=== PATIENT | male | born 1950 | race Caucasian/White ===

== ENCOUNTER 2017-12-16 17:17 | Emergency (ER) | payer MEDICARE, MEDICAID, SELFPAY ==
[2017-12-16 17:18] VITALS: BP 117/66; PULSE 96; RESP 20; TEMP 36.6; O2SAT 97; BMI 19.9
--- NOTE | 2017-12-16 17:35 | PC.NURSE ---
Pt seen by ER MD Andersen, advised of pt complaint and stated to check pt glucose and no further orders or test were needed at this time and pt was ok to be DC
--- NOTE | 2017-12-16 17:36 | PC.NURSE ---
PT glucose was 167
--- NOTE | 2017-12-16 17:52 | HMH.EDFALL ---
ED Disposition Clinical Impression: Fall Qualifiers: Encounter type: initial encounter Qualified Code(s): W19.XXXA - Unspecified fall, initial encounter Contusion Qualifiers: Encounter type: initial encounter Contusion area: head Contusion of head detail: unspecified part of head Qualified Code(s): S00.93XA - Contusion of unspecified part of head, initial encounter Disposition: Home, Self-Care Condition on Discharge: Good Instructions: How to Prevent Falls, DI for Contusion Time of Disposition: 17:52 - Critical Care Critical Care Time: No Attestation: On , the high probability of a clinically significant, sudden or life threatening deterioration of the following system(s) required my full and direct attention, intervention and personal management. The time I documented below is in addition to time spent performing reported procedures but includes the following listed in this critical care notation. Medical Decision Making - Medical Records Medical records reviewed: Yes: I reviewed the patient's medical records. - [place] Inquiry Pt receiving controlled substance: No Vital Signs: 12/16/17 17:18 Temperature 97.8 F Temperature Source Oral Pulse Rate [Left Radial] 96 H Respiratory Rate 20 Blood Pressure [Right Arm] 117/66 Blood Pressure Mean [Right Arm] 83 Blood Pressure Position [Right Arm] Sitting 02 Sat by Pulse Oximetry 97 Orders (Tests/Meds): ORDERS Category Date Time Status CT cervical spine wo con Stat Cat Scan 12/16/17 17:[address] head/brain wo con Stat Cat Scan 12/16/17 17:28 Stop Req Pelvis XR 1-2 views [XR pelvis 1-2V] Stat Exams 12/16/17 17:26 Stop Req XR chest 2V Stat Exams 12/16/17 17:25 Stop Req - Reevaluation(s) Time: 17:55 Reevaluation #1: On reevaluation patient appears medically stable, no acute distress, fingerstick rechecked, 168. Patient has any loss of consciousness, denies any acute complaints. Fall HPI - General Chief Complaint: Weakness Stated Complaint: FAll Time Seen by Provider: 12/16/17 17:35 Mode of Arrival: Ambulatory Limitations: No Limitations Description of Symptoms (Recalled from ER Triage Doc. by RN): Fell at his home [place] and hit his head, denies any LOC, no injury noted to head, pt states he is weak. PT is A&O x4 - Related Data Allergies Allergy/AdvReac Type Severity Reaction Status Date / Time No Known Allergies Allergy Verified 12/16/17 17:18 [facility] History I have reviewed the patient's past medical history: Yes Medical History: Reports:: Diabetes Mellitus Type 2 Denies:: Diabetes Mellitus Type 1 - Social History Smoking Status: Current every day smoker Tobacco Type: cigarettes # Packs/Day (cigarettes): 1 Alcohol Intake: never - Psychiatric History Expresses thoughts of harming self/others: None Suicide Plan Description: No Plan ROS Obtained: Yes All systems reviewed & no additional complaints, Yes Systems reviewed as appropriate & no additional complaints - Allergic/Immunologic Comments: s/p fall Physical Exam - General General appearance: alert, in no apparent distress - Head Head exam: atraumatic, normocephalic, normal inspection - Eye Eye exam: Present: normal appearance, PERRL, EOMI - Neck Neck exam: Present: normal inspection, full ROM, trachea midline. Absent: meningismus, lymphadenopathy - Chest Chest inspection: Present: normal inspection, symmetric chest wall rise. Absent: tenderness - Respiratory Respiratory exam: Present: normal lung sounds bilaterally. Absent: respiratory distress - Cardiovascular Cardiovascular exam: Present: regular rate, normal rhythm. Absent: JVD - Abdominal Exam Abdominal exam: Present: soft, normal bowel sounds. Absent: distention, tenderness, guarding - Extremities Exam Extremities exam: Present: normal inspection, full ROM, normal capillary refill. Absent: calf tenderness - Back Exam Back exam: Present: normal inspection. Absent: tender
--- NOTE | 2017-12-16 17:55 | ED_ITS ---
ED Disposition Clinical Impression: Fall Qualifiers: Encounter type: initial encounter Qualified Code(s): W19.XXXA - Unspecified fall, initial encounter Contusion Qualifiers: Encounter type: initial encounter Contusion area: head Contusion of head detail : unspecified part of head Qualified Code(s): S00.93XA - Contusion of unspecified part of head, initial encounter Disposition: Home, Self-Care Condition on Discharge: Good Instructions: How to Prevent Falls, DI for Contusion Time of Disposition: 17:52 - Critical Care Critical Care Time: No Attestation: On , the high probability of a clinically significant, sudden or life threatening deterioration of the following system(s) required my full and direct attention, intervention and personal management. The time I documented below is in addition to time spent performing reported procedures but includes the following listed in this critical care notation. Medical Decision Making - Medical Records Medical records reviewed: Yes: I reviewed the patient's medical records. - [place] Inquiry Pt receiving controlled substance: No Vital Signs: 12/16/17 17:18 Temperature 97.8 F Temperature Source Oral Pulse Rate [Left Radial] 96 H Respiratory Rate 20 Blood Pressure [Right Arm] 117/66 Blood Pressure Mean [Right Arm] 83 Blood Pressure Position [Right Arm] Sitting 02 Sat by Pulse Oximetry 97 Orders (Tests/Meds): ORDERS Category Date Time Status CT cervical spine wo con Stat Cat Scan 12/16/17 17:[address] head/brain wo con Stat Cat Scan 12/16/17 17:28 Stop Req Pelvis XR 1-2 views [XR pelvis 1-2V] Stat Exams 12/16/17 17:26 Stop Req XR chest 2V Stat Exams 12/16/17 17:25 Stop Req - Reevaluation(s) Time: 17:55 Reevaluation #1: On reevaluation patient appears medically stable, no acute distress, fingerstick rechecked, 168. Patient has any loss of consciousness, denies any acute complaints. Fall HPI - General Chief Complaint: Weakness Stated Complaint: FAll Time Seen by Provider: 12/16/17 17:35 Mode of Arrival: Ambulatory Limitations: No Limitations Description of Symptoms (Recalled from ER Triage Doc. by RN): Fell at his home [place] and hit his head, denies any LOC, no injury noted to head, pt states he is weak. PT is A&O x4 - Related Data Allergies Allergy/AdvReac Type Severity Reaction Status Date / Time No Known Allergies Allergy Verified 12/16/17 17:18 [facility] History I have reviewed the patient's past medical history: Yes Medical History: Reports:: Diabetes Mellitus Type 2 Denies:: Diabetes Mellitus Type 1 - Social History Smoking Status: Current every day smoker Tobacco Type: cigarettes # Packs/Day (cigarettes): 1 Alcohol Intake: never - Psychiatric History Expresses thoughts of harming self/others: None Suicide Plan Description: No Plan ROS Obtained: Yes All systems reviewed & no additional complaints, Yes Systems reviewed as appropriate & no additional complaints - Allergic/Immunologic Comments: s/p fall Physical Exam - General General appearance: alert, in no apparent distress - Head Head exam: atraumatic, normocephalic, normal inspection - Eye Eye exam: Present: normal appearance, PERRL, EOMI - Neck Neck exam: Present: normal inspection, full ROM, trachea midli
[2017-12-16 18:02] VITALS: BP 123/70; PULSE 95; RESP 20; TEMP 36.6
== END 2017-12-16 18:29 | disposition home or self-care (01) ==
PROVIDERS: Emergency Provider Emergency Medicine; PCP Emergency Medicine
DX: S00.93XA Contusion of unspecified part of head, initial encounter (principal); E11.9 Type 2 diabetes mellitus without complications; F17.210 Nicotine dependence, cigarettes, uncomplicated; W01.0XXA Fall on same level from slipping, tripping and stumbling without subsequent striking against object, initial encounter; Y92.199 Unspecified place in other specified residential institution as the place of occurrence of the external cause
CPT/HCPCS: 99281

== ENCOUNTER → 2018-01-13 13:45 | Outpatient (CLI) | payer MEDICARE, MEDICAID, SELFPAY ==
--- NOTE | 2018-01-13 13:50 | CT_ITS ---
CT chest wo con HISTORY: Cough with shortness of air ITS.REASON: abnormal CXR ORDERING PHYSICIAN: Telly Treviño MD PATIENT AGE: 67 years Technique: Axial images obtained. Sagittal and coronal reformatted images are also generated and reviewed. All CT scans at the facility use one or more dose reduction, viz: automated exposure control; ma/kV adjustment per patient size (including targeted exams where dose is matched to indication; i.e. head); or iterative reconstruction technique. CONTRAST: None No previous studies available for comparison FINDINGS: There are atherosclerotic changes of the rest aorta. Small precarinal lymph nodes are present. A cluster of nodes in the precarinal area measures 2.4 x 1.5 cm. There is extensive coronary artery calcification. Heart size is normal. Mediastinal and hilar evaluation is limited without contrast. There is increased density in the right hilar region. This area measures 3 x 3 cm with occlusion of the right upper lobe bronchus. Postobstructive pneumonia is present in the right upper lobe within the posterior and apical segment. 4 mm nodules present in the extreme right lung base centrally with central lucency. There are moderate to severe centrilobular emphysematous changes greater in the upper lobes. No effusions are evident. Upper abdominal images are unremarkable with the exception of possible gallstone. There is severe cachexia. No bony destructive process evident there is an old left fifth rib fracture laterally. IMPRESSION: 1. Right hilar mass measuring 3 x 3 cm occluding the right upper lobe bronchus highly suspicious for bronchogenic carcinoma with postobstructive pneumonia in the right upper lobe with mild mediastinal adenopathy. No contralateral adenopathy. 2. Centrilobular emphysema 3. Coronary artery disease
== END ==
PROVIDERS: PCP Emergency Medicine; Visit Provider Emergency Medicine
DX: R93.8 Abnormal findings on diagnostic imaging of other specified body structures (principal)
CPT/HCPCS: 71250

== ENCOUNTER 2018-02-03 21:28 | Inpatient (IN) ==
--- NOTE | 2018-02-03 22:13 | Emergency Department Note ---
ED Disposition Clinical Impression: Community acquired pneumonia Qualifiers: Laterality: right Lung location: upper lobe of lung Qualified Code(s): J18.1 - Lobar pneumonia, unspecified organism Lung cancer Qualifiers: Laterality: right Lung location: upper lobe of lung Qualified Code(s): C34.11 - Malignant neoplasm of upper lobe, right bronchus or lung Disposition: Admitted as Observation Condition on Discharge: Good Referrals: Telly Treviño MD [Primary Care Provider] - - Critical Care Critical Care Time: No Attestation: On 02/03/18, the high probability of a clinically significant, sudden or life threatening deterioration of the following system(s) required my full and direct attention, intervention and personal management. The time I documented below is in addition to time spent performing reported procedures but includes the following listed in this critical care notation. Medical Decision Making - Medical Records Medical records reviewed: Yes: I reviewed the patient's medical records. - [place] Inquiry Pt receiving controlled substance: No Vital Signs: 02/03/18 21:29 Temperature 101.6 F H Temperature Source Oral Pulse Rate [Right Radial] 110 H Respiratory Rate 20 Blood Pressure [Right Arm] 142/64 Blood Pressure Mean [Right Arm] 90 02 Sat by Pulse Oximetry 89 L Oxygen Delivery Method Room Air - Lab Data Lab results reviewed: Yes: I reviewed the patient's lab results. Lab Results 02/03/18 21:45: WBC 16.7 H, RBC 3.58 L, Hgb 10.5 L, Hct 31.6 L, MCV 88.2, MCH 29.3, MCHC 33.2, RDW 13.4, Plt Count 468 H, MPV 7.6, Neut % (Auto) 82.1 H, Lymph % (Auto) 8.3 L, [place] % (Auto) 9.1, Eos % (Auto) 0.2, Baso % (Auto) 0.2, Neut # (Auto) 13.7 H, Lymph # (Auto) 1.4, [place] # (Auto) 1.5 H, Eos # (Auto) 0.0 , Baso # (Auto) 0.0 02/03/18 21:45: Sodium 134 L, Potassium 4.1, Chloride 100, Carbon Dioxide 27, Anion Gap 11.1, BUN 21 H, Creatinine 0.79, Estimated Creat Clear 64, Estimated GFR 97, Est GFR ( Amer) 118, Glucose 319 H, Calcium 8.4 L, Total Bilirubin 0.4, AST 8 L, ALT 3 L, Alkaline Phosphatase 75, Total Protein 6.6, Albumin 2.0 L, Globulin 4.6 H, Albumin/Globulin Ratio 0.4 L, Total Valproic Acid 22.2 L 02/03/18 21:45: Lactic Acid 1.5 Result diagrams: 02/03/18 21:45 02/03/18 21:45 Orders (Tests/Meds): ED MEDICATIONS Discontinued Medications Generic Name Dose Route Start Last Admin Trade Name Freq PRN Reason Stop Dose Admin Acetaminophen 1,000 mg 02/03/18 21:40 02/03/18 21:47 Tylenol 500mg Tablet PO 02/03/18 21:41 1,000 mg ONCE ONE Administration Sodium Chloride 1,000 mls @ 999 mls/hr 02/03/18 21:45 02/03/18 21:47 Sod Chlor 0.9% 1000ml Bag IV 02/03/18 22:45 999 mls/hr .Q1H1M RODDY Administration ORDERS Category Date Time Status XR chest portable Stat Exams 02/03/18 21:39 Taken Complete Blood Count Auto Diff Stat Lab 02/03/18 21:45 Results Urinalysis and Microscopic Stat Lab 02/03/18 21:39 Ordered Blood Culture Stat Micro 02/03/18 21:45 Received - Radiology Data #1 Image(s): Chest Image Reviewed: Yes I reviewed the patient's radiology image Preliminary Findings: Abnormal (rt fullness) Weakness HPI - General Chief complaint: Fever Stated complaint: ALTERED MENTAL STATUS Time Seen by Provider: 02/03/18 22:10 Mode of Arrival: EMS Limitations: Physical Limitations Description of Symptoms (Recalled from ER Triage Doc. by RN): PT WITH HX LUNG CANCER, PT IS UNAWARE, DETENTION REPORTS HYPERGLYCEMIA. PT IS FEBRILE, HAS C /O COUGH AND OVERALL NOT FEELING WELL. - History of Present Illness HPI Narrative: fever with weakness and dec po intake sent fron assisted - pt unable to ambulate and rug scratcher cough and has lung cancer MD Complaint: generalized weakness Onset (ago): day(s) Duration: constant Location: generalized Migration: none Severity: moderate Context: recent illness Associated symptoms: fever/chills, shortness of breath - Related Data Home Medications Medication Instructions Recorded Confirmed Carbidopa-Levo 25-100 mg Odt 1 tab PO BID 02/03/18 02/03/18 Divalproex Sodium [Depakote 125 mg PO BID 02/03/18 02/03/18 Sprinkle 125mg capsule] Docusate Sodium [Colace 250mg 250 mg PO DAILY 02/03/18 02/03/18 capsule] Insulin Lispro [Humalog Kwikpen 10 unit SQ BID 02/03/18 02/03/18 U-100] OLANZapine [Zyprexa] 7.5 mg PO DAILY 02/03/18 02/03/18 Omeprazole [Omeprazole 20mg Tab] 20 mg PO DAILY 02/03/18 02/03/18 Potassium Chloride [Klor-con 20 20 meq PO DAILY 02/03/18 02/03/18 mEq tablet] Tamsulosin HCl [Flomax 0.4mg 0.4 mg PO HS 02/03/18 02/03/18 capsule] hydroCHLOROthiazide [HCTZ 25mg 25 mg PO DAILY 02/03/18 02/03/18 tab] Allergies Allergy/AdvReac Type Severity Reaction Status Date / Time No Known Allergies Allergy Verified 12/16/17 17:18 [facility] History I have reviewed the patient's past medical history: Yes Medical History: Reports:: Diabetes Mellitus Type 2 Denies:: Diabetes Mellitus Type 1 - Social History Smoking Status: Current every day smoker Tobacco Type: cigarettes # Packs/Day (cigarettes): 1 Alcohol Intake: never - Psychiatric History Expresses thoughts of harming self/others: None Suicide Plan Description: No Plan ROS Obtained: Yes All systems reviewed & no additional complaints - Constitutional Constitutional: Reports fever(s), Reports weakness - Eyes Eyes: Denies change in vision - ENT Ears, Nose, Mouth, and Throat: Denies sore throat - Cardiovascular Cardiovascular: Denies chest pain, Denies dyspnea - Respiratory Respiratory: Yes cough, Yes dyspnea, No coughing up blood - Gastrointestinal Gastrointestingal: Denies: abdominal pain - Musculoskeletal Musculoskeletal: Denies joint pain - Integumentary/Breasts Skin/Breast: Denies rash - Neurologic Neurologic: Denies headache(s) Physical Exam - General General appearance: alert, cachectic - Head Head exam: normocephalic - Eye Eye exam: Present: PERRL, EOMI. Absent: scleral icterus - ENT ENT exam: Present: mucous membranes dry - Neck Neck exam: Present: trachea midline - Respiratory Respiratory exam: Present: other (dec bs on rt). Absent: respiratory distress - Cardiovascular Cardiovascular exam: Present: regular rate, systolic murmur, +S4 - Abdominal Exam Abdominal exam: Present: soft - Extremities Exam Extremities exam: Absent: calf tenderness - Neurological Exam Neurological exam: Present: alert, oriented X3, CN II-XII intact - Psychiatric Psychiatric exam: Present: normal affect - Skin Skin exam: Absent: rash
[2018-02-03 22:22] LABS: Basophils % 0.2 % (0.1-2.0); Eosinophils % 0.2 % (0.1-12.0); Hematocrit 31.6 % (42.0-52.0); Hemoglobin 10.5 g/dL (14.1-18.0); Lymphocytes # 1.4 K/mm3 (0.7-4.5); Lymphocytes % 8.3 K/mm3 (10-50); Mean Corpuscular HGB Conc 33.2 g/dL (31.8-35.4); Mean Corpuscular Hemoglobin 29.3 pg (27.0-31.2); Mean Corpuscular Volume 88.2 fl (80-94); Mean Platelet Volume 7.6 fl (7.4-10.4); Monocytes # 1.5 K/mm3 (0.1-1.0); Monocytes % 9.1 % (1.7-9.3); Neutrophils # 13.7 K/mm3 (1.8-7.8); Neutrophils % 82.1 % (37.0-80.0); Platelet Count 468 K/mm3 (142-424); Red Blood Count 3.58 M/mm3 (4.60-6.20); Red Cell Distribution Width 13.4 % (11.5-17.5); White Blood Count 16.7 K/mm3 (4.8-10.8)
[2018-02-03 22:32] LABS: Albumin/Globulin Ratio 0.4 (1.1-1.8); Anion Gap 11.1 mEq/L (5-15); Bilirubin,Total 0.4 mg/dL (0.2-1.0); Calcium 8.4 mg/dL (8.5-10.1); Globulin 4.6 gm/dl (1.3-3.2); Potassium 4.1 mmoL/L (3.5-5.1); Total Protein,Serum 6.6 gm/dL (6.4-8.2); Valproic Acid, (Depakene) 22.2 ug/mL (50-100)
[2018-02-03 23:33] LABS: Anisocytosis 1+; Lymphocytes % 6 % (10-50); Monocytes % 2 % (2-9); Neutrophils % 92 % (42-76); Total Cells Counted 100
[2018-02-03 23:34] LABS: Hypochromasia 1+
[2018-02-04 07:26] LABS: Basophils % 0.3 % (0.1-2.0); Eosinophils % 0.1 % (0.1-12.0); Hematocrit 31.7 % (42.0-52.0); Hemoglobin 10.7 g/dL (14.1-18.0); Lymphocytes # 1.9 K/mm3 (0.7-4.5); Lymphocytes % 11.5 K/mm3 (10-50); Mean Corpuscular HGB Conc 33.7 g/dL (31.8-35.4); Mean Corpuscular Hemoglobin 29.8 pg (27.0-31.2); Mean Corpuscular Volume 88.6 fl (80-94); Mean Platelet Volume 7.8 fl (7.4-10.4); Monocytes # 0.9 K/mm3 (0.1-1.0); Monocytes % 5.5 % (1.7-9.3); Neutrophils # 13.9 K/mm3 (1.8-7.8); Neutrophils % 82.6 % (37.0-80.0); Platelet Count 457 K/mm3 (142-424); Red Blood Count 3.58 M/mm3 (4.60-6.20); Red Cell Distribution Width 13.5 % (11.5-17.5); White Blood Count 16.8 K/mm3 (4.8-10.8)
[2018-02-04 07:31] LABS: Anion Gap 11.9 mEq/L (5-15); Potassium 3.9 mmoL/L (3.5-5.1)
--- NOTE | 2018-02-04 07:33 | Pharmacy Consult Notes ---
[facility] Pharmacy VTE Monitoring - Patient Demographics Admission date: 02/04/18 Report Date: 02/04/18 Time: 07:32 Allergies/Adverse Reactions: Patient Allergies No Known Allergies Allergy (Verified 12/16/17 17:18) Height: 1.7 m Weight: 62.199 kg Patient Problems: Current Active Problems Community acquired pneumonia (Acute) Lung cancer (Acute) - VTE Risk Labs: VTE Related Lab Results Hgb 10.5 g/dL (14.1-18.0) L 02/03/18 21:45 Hct 31.6 % (42.0-52.0) L 02/03/18 21:45 Plt Count 468 K/mm3 (142-424) H 02/03/18 21:45 BUN 21 mg/dL (7-18) H 02/03/18 21:45 Creatinine 0.79 mg/dL (0.70-1.30) 02/03/18 21:45 Estimated Creat Clear 64 mL/min (0-300) 02/03/18 21:45 Was VTE Risk Assessment Performed: Yes VTE Score: 6 VTE Risk Level: Moderate Risk - Prophylaxis VTE Prophylaxis Ordered?: Yes Types of VTE Prophylaxis: Pharmacological Pharmacologic Type: Enoxaparin - VTE Diagnosis Confirmed Treatment or plan recommended: Continue Current Treatment
--- NOTE | 2018-02-04 07:48 | Pharmacy Consult Notes ---
- Pharmacy Consult Date: 02/04/18 Time: 07:46 Referring provider: DR. MCNALLY Reason for Consult:: VANCOMYCIN DOSING Allergies and ADEs:: Allergies Allergy/AdvReac Type Severity Reaction Status Date / Time No Known Allergies Allergy Verified 12/16/17 17:18 Home Medications:: Home Medications Medication Instructions Recorded Confirmed Type Divalproex Sodium [Depakote 250 mg PO BID 02/03/18 02/04/18 History Sprinkle 125mg capsule] Docusate Sodium [Colace 250mg 250 mg PO DAILY 02/03/18 02/04/18 History capsule] Insulin Lispro [Humalog Kwikpen 10 unit SQ BID 02/03/18 02/04/18 History U-100] OLANZapine [Zyprexa] 7.5 mg PO DAILY 02/03/18 02/04/18 History Omeprazole [Omeprazole 20mg Tab] 20 mg PO DAILY 02/03/18 02/04/18 History Potassium Chloride [Klor-con 20 20 meq PO DAILY 02/03/18 02/04/18 History mEq tablet] Tamsulosin HCl [Flomax 0.4mg 0.4 mg PO DAILY 02/03/18 02/04/18 History capsule] hydroCHLOROthiazide [HCTZ 25mg 25 mg PO DAILY 02/03/18 02/04/18 History tab] Carbidopa/Levodopa [Carbidopa-Levo 1 each PO BID 02/04/18 02/04/18 History 25-100 mg Odt] Height: 1.7 m Weight: 62.199 kg Laboratory Results:: Laboratory Results - last 24 hr 02/03/18 21:34: POC Glucose 360 H* 02/03/18 21:45: WBC 16.7 H, RBC 3.58 L, Hgb 10.5 L, Hct 31.6 L, MCV 88.2, MCH 29.3, MCHC 33.2, RDW 13.4, Plt Count 468 H, MPV 7.6, Neut % (Auto) 82.1 H, Lymph % (Auto) 8.3 L, [place] % (Auto) 9.1, Eos % (Auto) 0.2, Baso % (Auto) 0.2, Neut # (Auto) 13.7 H, Lymph # (Auto) 1.4, [place] # (Auto) 1.5 H, Eos # (Auto) 0.0 , Baso # (Auto) 0.0, Total Counted 100, Neutrophils % (Manual) 92 H, Lymphocytes % (Manual) 6 L, Monocytes % (Manual) 2, Platelet Estimate Normal, Hypochromasia 1+, Anisocytosis 1+ 02/03/18 21:45: Sodium 134 L, Potassium 4.1, Chloride 100, Carbon Dioxide 27, Anion Gap 11.1, BUN 21 H, Creatinine 0.79, Estimated Creat Clear 64, Estimated GFR 97, Est GFR ( Amer) 118, Glucose 319 H, Calcium 8.4 L, Total Bilirubin 0.4, AST 8 L, ALT 3 L, Alkaline Phosphatase 75, Total Protein 6.6, Albumin 2.0 L, Globulin 4.6 H, Albumin/Globulin Ratio 0.4 L, Total Valproic Acid 22.2 L 02/03/18 21:45: Lactic Acid 1.5 02/04/18 06:21: POC Glucose 264 H 02/04/18 06:50: WBC 16.8 H, RBC 3.58 L, Hgb 10.7 L, Hct 31.7 L, MCV 88.6, MCH 29.8, MCHC 33.7, RDW 13.5, Plt Count 457 H, MPV 7.8, Neut % (Auto) 82.6 H, Lymph % (Auto) 11.5, [place] % (Auto) 5.5, Eos % (Auto) 0.1, Baso % (Auto) 0.3, Neut # (Auto) 13.9 H, Lymph # (Auto) 1.9, [place] # (Auto) 0.9, Eos # (Auto) 0.0, Baso # (Auto) 0.0 02/04/18 06:50: Sodium 136, Potassium 3.9, Chloride 101, Carbon Dioxide 27, Anion Gap 11.9, BUN 17, Creatinine 0.69 L, Estimated Creat Clear 61, Estimated GFR 114, Est GFR ( Amer) 138, Glucose 252 H D, Magnesium 1.8 Medical History: Reports:: Diabetes Mellitus Type 2 Denies:: Diabetes Mellitus Type 1, Internal Pacemaker Assessment and Plan - Assessment and plan all Dx Assessment and Plan for all problems:: BASED ON PATIENT'S FACTORS, RECOMMEND STARTING WITH VANCOMYCIN 1250 MG Q18H AT THIS TIME. PHARMACY WILL FOLLOW DAILY AND ADJUST APPROPRIATE. ADRI OROSCO, PHARMD
--- NOTE | 2018-02-04 10:31 | History & Physical Report ---
*Admission Date: 02/04/18 *Chief complaint: cough *History of present illness: this wm from [facility] nad fever with cough- pt has long hx of tob use and has abn ct - with prob lung cancer- he has dec ambulation and dec po intake and was seen in the ed and admitted with prob (67-year-old man to the hospital on 02/03/2018 because of failure to thrive cough 100 pound weight loss. She lives in an assisted living center and the weight loss and loss of appetite started about a year ago. The cough started about 3 months ago. Cough is brassy nonproductive. It has over 100 pack years of smoking. CT scan on admission showed a right hilar mass with numerous mediastinal nodes.) [facility] History I have reviewed the patient's past medical history: Yes Medical History: Reports:: Diabetes Mellitus Type 2 Denies:: Diabetes Mellitus Type 1, Internal Pacemaker Other Surgeries: No: Pacemaker - *Social History Educational Level: Attended Grade School Smoking Status: Current every day smoker Tobacco Type: cigarettes # Packs/Day (cigarettes): 1 #Yrs smoked (if former smoker): 49 Alcohol Intake: never Occupational Status: disabled Housing: assisted living facility Household Members: other - Psychiatric History Expresses thoughts of harming self/others: None Suicide Plan Description: No Plan *Family Hx:: Unable to obtain Review of Systems - Review of Systems Review of systems:: pertinent systems reviewed and negative unless documented below - Constitutional Reports fever(s), Reports weakness, Reports weight loss - Eyes Denies change in vision - ENT Denies sore throat - *Cardiovascular Reports chest pain - *Respiratory Reports cough, Denies coughing up blood - *Gastrointestinal Denies vomiting - *Genitourinary Denies blood in urine - *Musculoskeletal Denies joint pain, Denies joint swelling - Integumentary/Breasts Denies rash - *Neurologic Reports weakness, Denies headache(s) - Psychiatric Reports confusion Meds Home Medications Medication Instructions Recorded Confirmed Type Divalproex Sodium [Depakote 250 mg PO BID 02/03/18 02/04/18 History Sprinkle 125mg capsule] Docusate Sodium [Colace 250mg 250 mg PO DAILY 02/03/18 02/04/18 History capsule] Insulin Lispro [Humalog Kwikpen 10 unit SQ BID 02/03/18 02/04/18 History U-100] OLANZapine [Zyprexa] 7.5 mg PO HS 02/03/18 02/04/18 History Omeprazole [Omeprazole 20mg Tab] 20 mg PO DAILY 02/03/18 02/04/18 History Potassium Chloride [Klor-con 20 20 meq PO DAILY 02/03/18 02/04/18 History mEq tablet] Tamsulosin HCl [Flomax 0.4mg 0.4 mg PO DAILY 02/03/18 02/04/18 History capsule] hydroCHLOROthiazide [HCTZ 25mg 25 mg PO DAILY 02/03/18 02/04/18 History tab] Carbidopa/Levodopa [Carbidopa-Levo 1 tab PO BID 02/04/18 02/04/18 History 25-100 mg Odt] Allergies Allergy/AdvReac Type Severity Reaction Status Date / Time No Known Allergies Allergy Verified 12/16/17 17:18 Exam Vital signs and Labs for Last 24 Hours: Temp Pulse Resp BP Pulse Ox 98.7 F 77 22 136/59 93 L 02/04/18 07:41 02/04/18 07:41 02/04/18 07:41 02/04/18 07:41 02/04/18 07:41 Laboratory Results - last 24 hr 02/03/18 21:34: POC Glucose 360 H* 02/03/18 21:45: WBC 16.7 H, RBC 3.58 L, Hgb 10.5 L, Hct 31.6 L, MCV 88.2, MCH 29.3, MCHC 33.2, RDW 13.4, Plt Count 468 H, MPV 7.6, Neut % (Auto) 82.1 H, Lymph % (Auto) 8.3 L, [place] % (Auto) 9.1, Eos % (Auto) 0.2, Baso % (Auto) 0.2, Neut # (Auto) 13.7 H, Lymph # (Auto) 1.4, [place] # (Auto) 1.5 H, Eos # (Auto) 0.0 , Baso # (Auto) 0.0, Total Counted 100, Neutrophils % (Manual) 92 H, Lymphocytes % (Manual) 6 L, Monocytes % (Manual) 2, Platelet Estimate Normal, Hypochromasia 1+, Anisocytosis 1+ 02/03/18 21:45: Sodium 134 L, Potassium 4.1, Chloride 100, Carbon Dioxide 27, Anion Gap 11.1, BUN 21 H, Creatinine 0.79, Estimated Creat Clear 64, Estimated GFR 97, Est GFR ( Amer) 118, Glucose 319 H, Calcium 8.4 L, Total Bilirubin 0.4, AST 8 L, ALT 3 L, Alkaline Phosphatase 75, Total Protein 6.6, Albumin 2.0 L, Globulin 4.6 H, Albumin/Globulin Ratio 0.4 L, Total Valproic Acid 22.2 L 02/03/18 21:45: Lactic Acid 1.5 02/04/18 06:21: POC Glucose 264 H 02/04/18 06:50: WBC 16.8 H, RBC 3.58 L, Hgb 10.7 L, Hct 31.7 L, MCV 88.6, MCH 29.8, MCHC 33.7, RDW 13.5, Plt Count 457 H, MPV 7.8, Neut % (Auto) 82.6 H, Lymph % (Auto) 11.5, [place] % (Auto) 5.5, Eos % (Auto) 0.1, Baso % (Auto) 0.3, Neut # (Auto) 13.9 H, Lymph # (Auto) 1.9, [place] # (Auto) 0.9, Eos # (Auto) 0.0, Baso # (Auto) 0.0 02/04/18 06:50: Sodium 136, Potassium 3.9, Chloride 101, Carbon Dioxide 27, Anion Gap 11.9, BUN 17, Creatinine 0.69 L, Estimated Creat Clear 61, Estimated GFR 114, Est GFR ( Amer) 138, Glucose 252 H D, Magnesium 1.8 I & O for Last 24 hours: Intake & Output 02/01/18 02/02/18 02/03/18 02/04/18 11:59 11:59 11:59 11:59 Intake Total 1566 / 1566 Output Total 100 / 100 Balance 1466 / 1466 Weight 137 lb 2 oz Microbiology Reports for the Last 24 Hours: Microbiology 02/03/18 00:10 Sputum - Expectorated Sputum Gram Stain - Final 02/03/18 00:10 Sputum - Expectorated Sputum Sputum Culture - Preliminary - Constitutional no acute distress, cachectic - *Routine HEENT Exam Head: Present: normocephalic Eye: Present: EOMI, PERRL. Absent: conjunctival icterus ENT: Present: mucous membranes dry - *Routine Neck Exam Present: supple - *Routine Respiratory Exam Present: rhonchi - *Routine Cardiovascular Exam Present: RRR, murmur, S4 - *Routine Abdominal Exam Present: soft. Absent: tenderness - *Routine Skin Exam Absent: rash - *Routine Neurological Exam Present: alert, CN II-XII intact - Routine Psychiatric Exam Present: unable to assess H&P: Result - Labs Labs: Short CBC 02/03/18 02/04/18 Range/Units 21:45 06:50 WBC 16.7 H 16.8 H (4.8-10.8) K/mm3 Hgb 10.5 L 10.7 L (14.1-18.0) g/dL Hct 31.6 L 31.7 L (42.0-52.0) % Plt Count 468 H 457 H (142-424) K/mm3 BMP 02/03/18 02/04/18 21:45 06:50 Sodium 134 L 136 Potassium 4.1 3.9 Chloride 100 101 Carbon Dioxide 27 27 BUN 21 H 17 Creatinine 0.79 0.69 L Glucose 319 H 252 H D Calcium 8.4 L Liver Function 02/03/18 Range/Units 21:45 Total Bilirubin 0.4 (0.2-1.0) mg/dL AST 8 L (15-37) U/L ALT 3 L (12-78) U/L Alkaline Phosphatase 75 (46-116) U/L Albumin 2.0 L (3.4-5.0) gm/dL Assessment and Plan (1) IDDM (insulin dependent diabetes mellitus) Current visit: Yes Status: Acute Category: Medical Code(s): E11.9 - Type 2 diabetes mellitus without complications; Z79.4 - manager intermediate (current) use of insulin (2) Community acquired pneumonia Current visit: Yes Status: Acute Qualifiers: Laterality: right Lung location: upper lobe of lung Qualified Code(s): J18.1 - Lobar pneumonia, unspecified organism Category: Medical Code(s): J18.9 - Pneumonia, unspecified organism (3) Lung cancer Current visit: Yes Status: Acute Qualifiers: Laterality: right Lung location: upper lobe of lung Qualified Code(s): C34.11 - Malignant neoplasm of upper lobe, right bronchus or lung Category: Medical Code(s): C34.90 - Malignant neoplasm of unspecified part of unspecified bronchus or lung (4) Anemia Current visit: Yes Status: Acute Qualifiers: Anemia type: unspecified type Qualified Code(s): D64.9 - Anemia, unspecified Category: Medical Code(s): D64.9 - Anemia, unspecified
[2018-02-04 11:06] LABS: Lymphocytes % 11 % (10-50); Monocytes % 6 % (2-9); Neutrophils % 83 % (42-76); Total Cells Counted 100
--- NOTE | 2018-02-04 13:36 | Consult Report ---
*Admission Date: 02/04/18 *History of present illness: this wm from [facility] nad fever with cough [facility] History Medical History: Reports:: Diabetes Mellitus Type 2 Denies:: Diabetes Mellitus Type 1, Internal Pacemaker Other Surgeries: No: Pacemaker - *Social History Educational Level: Attended Grade School Smoking Status: Current every day smoker Tobacco Type: cigarettes # Packs/Day (cigarettes): 1 #Yrs smoked (if former smoker): 49 Alcohol Intake: never Occupational Status: disabled Housing: assisted living facility Household Members: other - Psychiatric History Expresses thoughts of harming self/others: None Suicide Plan Description: No Plan *Family Hx:: Unable to obtain Review of Systems - *Neurologic Reports weakness, Denies headache(s) Meds Home Medications Medication Instructions Recorded Confirmed Type Divalproex Sodium [Depakote 250 mg PO BID 02/03/18 02/04/18 History Sprinkle 125mg capsule] Docusate Sodium [Colace 250mg 250 mg PO DAILY 02/03/18 02/04/18 History capsule] Insulin Lispro [Humalog Kwikpen 10 unit SQ BID 02/03/18 02/04/18 History U-100] OLANZapine [Zyprexa] 7.5 mg PO HS 02/03/18 02/04/18 History Omeprazole [Omeprazole 20mg Tab] 20 mg PO DAILY 02/03/18 02/04/18 History Potassium Chloride [Klor-con 20 20 meq PO DAILY 02/03/18 02/04/18 History mEq tablet] Tamsulosin HCl [Flomax 0.4mg 0.4 mg PO DAILY 02/03/18 02/04/18 History capsule] hydroCHLOROthiazide [HCTZ 25mg 25 mg PO DAILY 02/03/18 02/04/18 History tab] Carbidopa/Levodopa [Carbidopa-Levo 1 tab PO BID 02/04/18 02/04/18 History 25-100 mg Odt] Allergies Allergy/AdvReac Type Severity Reaction Status Date / Time No Known Allergies Allergy Verified 12/16/17 17:18 Exam Vital signs and Labs for Last 24 Hours: Temp Pulse Resp BP Pulse Ox 98.5 F 78 20 133/56 96 02/04/18 11:27 02/04/18 11:27 02/04/18 11:27 02/04/18 11:27 02/04/18 11:27 Laboratory Results - last 24 hr 02/03/18 21:34: POC Glucose 360 H* 02/03/18 21:45: WBC 16.7 H, RBC 3.58 L, Hgb 10.5 L, Hct 31.6 L, MCV 88.2, MCH 29.3, MCHC 33.2, RDW 13.4, Plt Count 468 H, MPV 7.6, Neut % (Auto) 82.1 H, Lymph % (Auto) 8.3 L, [place] % (Auto) 9.1, Eos % (Auto) 0.2, Baso % (Auto) 0.2, Neut # (Auto) 13.7 H, Lymph # (Auto) 1.4, [place] # (Auto) 1.5 H, Eos # (Auto) 0.0 , Baso # (Auto) 0.0, Total Counted 100, Neutrophils % (Manual) 92 H, Lymphocytes % (Manual) 6 L, Monocytes % (Manual) 2, Platelet Estimate Normal, Hypochromasia 1+, Anisocytosis 1+ 02/03/18 21:45: Sodium 134 L, Potassium 4.1, Chloride 100, Carbon Dioxide 27, Anion Gap 11.1, BUN 21 H, Creatinine 0.79, Estimated Creat Clear 64, Estimated GFR 97, Est GFR ( Amer) 118, Glucose 319 H, Calcium 8.4 L, Total Bilirubin 0.4, AST 8 L, ALT 3 L, Alkaline Phosphatase 75, Total Protein 6.6, Albumin 2.0 L, Globulin 4.6 H, Albumin/Globulin Ratio 0.4 L, Total Valproic Acid 22.2 L 02/03/18 21:45: Lactic Acid 1.5 02/04/18 06:21: POC Glucose 264 H 02/04/18 06:50: WBC 16.8 H, RBC 3.58 L, Hgb 10.7 L, Hct 31.7 L, MCV 88.6, MCH 29.8, MCHC 33.7, RDW 13.5, Plt Count 457 H, MPV 7.8, Neut % (Auto) 82.6 H, Lymph % (Auto) 11.5, [place] % (Auto) 5.5, Eos % (Auto) 0.1, Baso % (Auto) 0.3, Neut # (Auto) 13.9 H, Lymph # (Auto) 1.9, [place] # (Auto) 0.9, Eos # (Auto) 0.0, Baso # (Auto) 0.0, Total Counted 100, Neutrophils % (Manual) 83 H, Lymphocytes % (Manual) 11, Monocytes % (Manual) 6, Platelet Estimate Slight increase 02/04/18 06:50: Sodium 136, Potassium 3.9, Chloride 101, Carbon Dioxide 27, Anion Gap 11.9, BUN 17, Creatinine 0.69 L, Estimated Creat Clear 61, Estimated GFR 114, Est GFR ( Amer) 138, Glucose 252 H D, Magnesium 1.8 02/04/18 11:31: POC Glucose 313 H* I & O for Last 24 hours: Intake & Output 02/01/18 02/02/18 02/03/18 02/04/18 23:59 23:59 23:59 23:59 Intake Total 1100 / 1100 946 / 946 Output Total 700 / 700 Balance 1100 / 1100 246 / 246 Weight 142 lb 137 lb 2 oz Microbiology Reports for the Last 24 Hours: Microbiology 02/03/18 00:10 Sputum - Expectorated Sputum Gram Stain - Final 02/03/18 00:10 Sputum - Expectorated Sputum Sputum Culture - Preliminary Internal Medicine - CN: Reslt - Labs CBC & Chem 7: 02/04/18 06:50 02/04/18 06:50 Labs: Short CBC 02/03/18 02/04/18 Range/Units 21:45 06:50 WBC 16.7 H 16.8 H (4.8-10.8) K/mm3 Hgb 10.5 L 10.7 L (14.1-18.0) g/dL Hct 31.6 L 31.7 L (42.0-52.0) % Plt Count 468 H 457 H (142-424) K/mm3 BMP 02/03/18 02/04/18 21:45 06:50 Sodium 134 L 136 Potassium 4.1 3.9 Chloride 100 101 Carbon Dioxide 27 27 BUN 21 H 17 Creatinine 0.79 0.69 L Glucose 319 H 252 H D Calcium 8.4 L Liver Function 02/03/18 Range/Units 21:45 Total Bilirubin 0.4 (0.2-1.0) mg/dL AST 8 L (15-37) U/L ALT 3 L (12-78) U/L Alkaline Phosphatase 75 (46-116) U/L Albumin 2.0 L (3.4-5.0) gm/dL
--- NOTE | 2018-02-04 13:44 | Consult Report ---
*Admission Date: 02/04/18 (67-year-old man to the hospital on 02/03/2018 because of failure to thrive cough 100 pound weight loss. She lives in an assisted living center and the weight loss and loss of appetite started about a year ago. The cough started about 3 months ago. Cough is brassy nonproductive. It has over 100 pack years of smoking. CT scan on admission showed a right hilar mass with numerous mediastinal nodes.) [facility] History Medical History: Reports:: Diabetes Mellitus Type 2 Denies:: Diabetes Mellitus Type 1, Internal Pacemaker Other Surgeries: No: Pacemaker - *Social History Educational Level: Attended Grade School Smoking Status: Current every day smoker Tobacco Type: cigarettes # Packs/Day (cigarettes): 1 #Yrs smoked (if former smoker): 49 Alcohol Intake: never Occupational Status: disabled Housing: assisted living facility Household Members: other - Psychiatric History Expresses thoughts of harming self/others: None Suicide Plan Description: No Plan *Family Hx:: Unable to obtain Review of Systems - *Neurologic Reports weakness, Denies headache(s) Meds Home Medications Medication Instructions Recorded Confirmed Type Divalproex Sodium [Depakote 250 mg PO BID 02/03/18 02/04/18 History Sprinkle 125mg capsule] Docusate Sodium [Colace 250mg 250 mg PO DAILY 02/03/18 02/04/18 History capsule] Insulin Lispro [Humalog Kwikpen 10 unit SQ BID 02/03/18 02/04/18 History U-100] OLANZapine [Zyprexa] 7.5 mg PO HS 02/03/18 02/04/18 History Omeprazole [Omeprazole 20mg Tab] 20 mg PO DAILY 02/03/18 02/04/18 History Potassium Chloride [Klor-con 20 20 meq PO DAILY 02/03/18 02/04/18 History mEq tablet] Tamsulosin HCl [Flomax 0.4mg 0.4 mg PO DAILY 02/03/18 02/04/18 History capsule] hydroCHLOROthiazide [HCTZ 25mg 25 mg PO DAILY 02/03/18 02/04/18 History tab] Carbidopa/Levodopa [Carbidopa-Levo 1 tab PO BID 02/04/18 02/04/18 History 25-100 mg Odt] Allergies Allergy/AdvReac Type Severity Reaction Status Date / Time No Known Allergies Allergy Verified 12/16/17 17:18 Exam Vital signs and Labs for Last 24 Hours: Temp Pulse Resp BP Pulse Ox 98.5 F 78 20 133/56 96 02/04/18 11:27 02/04/18 11:27 02/04/18 11:27 02/04/18 11:02/04/18 11:27 Laboratory Results - last 24 hr 02/03/18 21:34: POC Glucose 360 H* 02/03/18 21:45: WBC 16.7 H, RBC 3.58 L, Hgb 10.5 L, Hct 31.6 L, MCV 88.2, MCH 29.3, MCHC 33.2, RDW 13.4, Plt Count 468 H, MPV 7.6, Neut % (Auto) 82.1 H, Lymph % (Auto) 8.3 L, [place] % (Auto) 9.1, Eos % (Auto) 0.2, Baso % (Auto) 0.2, Neut # (Auto) 13.7 H, Lymph # (Auto) 1.4, [place] # (Auto) 1.5 H, Eos # (Auto) 0.0 , Baso # (Auto) 0.0, Total Counted 100, Neutrophils % (Manual) 92 H, Lymphocytes % (Manual) 6 L, Monocytes % (Manual) 2, Platelet Estimate Normal, Hypochromasia 1+, Anisocytosis 1+ 02/03/18 21:45: Sodium 134 L, Potassium 4.1, Chloride 100, Carbon Dioxide 27, Anion Gap 11.1, BUN 21 H, Creatinine 0.79, Estimated Creat Clear 64, Estimated GFR 97, Est GFR ( Amer) 118, Glucose 319 H, Calcium 8.4 L, Total Bilirubin 0.4, AST 8 L, ALT 3 L, Alkaline Phosphatase 75, Total Protein 6.6, Albumin 2.0 L, Globulin 4.6 H, Albumin/Globulin Ratio 0.4 L, Total Valproic Acid 22.2 L 02/03/18 21:45: Lactic Acid 1.5 02/04/18 06:21: POC Glucose 264 H 02/04/18 06:50: WBC 16.8 H, RBC 3.58 L, Hgb 10.7 L, Hct 31.7 L, MCV 88.6, MCH 29.8, MCHC 33.7, RDW 13.5, Plt Count 457 H, MPV 7.8, Neut % (Auto) 82.6 H, Lymph % (Auto) 11.5, [place] % (Auto) 5.5, Eos % (Auto) 0.1, Baso % (Auto) 0.3, Neut # (Auto) 13.9 H, Lymph # (Auto) 1.9, [place] # (Auto) 0.9, Eos # (Auto) 0.0, Baso # (Auto) 0.0, Total Counted 100, Neutrophils % (Manual) 83 H, Lymphocytes % (Manual) 11, Monocytes % (Manual) 6, Platelet Estimate Slight increase 02/04/18 06:50: Sodium 136, Potassium 3.9, Chloride 101, Carbon Dioxide 27, Anion Gap 11.9, BUN 17, Creatinine 0.69 L, Estimated Creat Clear 61, Estimated GFR 114, Est GFR ( Amer) 138, Glucose 252 H D, Magnesium 1.8 02/04/18 11:31: POC Glucose 313 H* I & O for Last 24 hours: Intake & Output 02/01/18 02/02/18 02/03/18 02/04/18 23:59 23:59 23:59 23:59 Intake Total 1100 / 1100 946 / 946 Output Total 700 / 700 Balance 1100 / 1100 246 / 246 Weight 142 lb 137 lb 2 oz Microbiology Reports for the Last 24 Hours: Microbiology 02/03/18 00:10 Sputum - Expectorated Sputum Gram Stain - Final 02/03/18 00:10 Sputum - Expectorated Sputum Sputum Culture - Preliminary Internal Medicine - CN: Reslt - Labs CBC & Chem 7: 02/04/18 06:50 02/04/18 06:50 Labs: Short CBC 02/03/18 02/04/18 Range/Units 21:45 06:50 WBC 16.7 H 16.8 H (4.8-10.8) K/mm3 Hgb 10.5 L 10.7 L (14.1-18.0) g/dL Hct 31.6 L 31.7 L (42.0-52.0) % Plt Count 468 H 457 H (142-424) K/mm3 BMP 02/03/18 02/04/18 21:45 06:50 Sodium 134 L 136 Potassium 4.1 3.9 Chloride 100 101 Carbon Dioxide 27 27 BUN 21 H 17 Creatinine 0.79 0.69 L Glucose 319 H 252 H D Calcium 8.4 L Liver Function 02/03/18 Range/Units 21:45 Total Bilirubin 0.4 (0.2-1.0) mg/dL AST 8 L (15-37) U/L ALT 3 L (12-78) U/L Alkaline Phosphatase 75 (46-116) U/L Albumin 2.0 L (3.4-5.0) gm/dL
[2018-02-04 15:20] LABS: Microscopic, Urine URINE MICROSCOPIC (MICROSCOPIC)
[2018-02-04 15:22] LABS: Appearance,Urine CLEAR (Clear); Bilirubin,Urine Negative (Negative); Blood, Urine Negative (Negative); Color,Urine YELLOW (Yellow); Glucose,Urine (UA) 1+ (Negative); Ketones,Urine Negative (Negative); Leukocyte Esterase,Urine Negative (Negative); Protein,Urine Negative (Negative); Specific Gravity, Urine 1.025 (1.005-1.030)
[2018-02-04 16:10] LABS: RBC,Urine Occasional #/hpf (0-3)
[2018-02-04 16:11] LABS: Bacteria,Urine Trace /lpf
--- NOTE | 2018-02-05 09:06 | Progress Note ---
Internal Medicine - PN: Subj *Date: 02/05/18 *Time: 09:03 Interval history: looks better and will do ct for mets and try to get bx Exam Vital signs and Labs for Last 24 Hours: Temp Pulse Resp BP Pulse Ox 98.4 F 64 16 128/56 95 02/05/18 08:30 02/05/18 08:30 02/05/18 08:30 02/05/18 08:30 02/05/18 08:30 Laboratory Results - last 24 hr 02/04/18 06:50: Total Counted 100, Neutrophils % (Manual) 83 H, Lymphocytes % ( Manual) 11, Monocytes % (Manual) 6, Platelet Estimate Slight increase 02/04/18 11:31: POC Glucose 313 H* 02/04/18 15:10: Urine Color Yellow, Urine Appearance Clear, Urine pH 6.0, Ur Specific [place] 1.025, Urine Protein Negative, Urine Glucose (UA) 1+, Urine Ketones Negative, Urine Blood Negative, Urine Nitrate Negative, Urine Bilirubin Negative, Urine Urobilinogen 4.0, Ur Leukocyte Esterase Negative, Urine RBC Occasional, Urine WBC None, Ur Squamous Epith Cells None, Urine Bacteria Trace 02/04/18 16:20: POC Glucose 274 H 02/04/18 20:43: POC Glucose 220 H 02/05/18 05:49: POC Glucose 194 H I & O for Last 24 hours: Intake & Output 02/02/18 02/03/18 02/04/18 02/05/18 11:59 11:59 11:59 11:59 Intake Total 1566 / 1566 4149 / 4149 Output Total 400 / 400 1200 / 1200 Balance 1166 / 1166 2949 / 2949 Weight 137 lb 2 oz 140 lb 3 oz Microbiology Reports for the Last 24 Hours: Microbiology 02/03/18 21:45 Blood Blood Culture - Preliminary Gram Positive Cocci 02/03/18 00:10 Sputum - Expectorated Sputum Gram Stain - Final 02/03/18 00:10 Sputum - Expectorated Sputum Sputum Culture - Preliminary Gram Negative Rods 02/03/18 21:45 Blood Blood Culture - Preliminary - Constitutional no acute distress - *Routine HEENT Exam Head: Present: normocephalic Eye: Present: EOMI, PERRL ENT: Present: mucous membranes dry - *Routine Neck Exam Present: supple - *Routine Respiratory Exam Present: decreased breath sounds - *Routine Cardiovascular Exam Present: RRR, murmur - *Routine Abdominal Exam Present: soft - *Routine Extremities Exam Present: full ROM - *Routine Skin Exam Present: intact - *Routine Neurological Exam Present: alert, oriented X3, CN II-XII intact - Routine Psychiatric Exam Present: unable to assess Assessment and Plan (1) IDDM (insulin dependent diabetes mellitus) Current visit: Yes Status: Acute Category: Medical Code(s): E11.9 - Type 2 diabetes mellitus without complications; Z79.4 - halfway (current) use of insulin (2) Community acquired pneumonia Current visit: Yes Status: Acute Qualifiers: Laterality: right Lung location: upper lobe of lung Qualified Code(s): J18.1 - Lobar pneumonia, unspecified organism Category: Medical Code(s): J18.9 - Pneumonia, unspecified organism (3) Lung cancer Current visit: Yes Status: Acute Qualifiers: Laterality: right Lung location: upper lobe of lung Qualified Code(s): C34.11 - Malignant neoplasm of upper lobe, right bronchus or lung Category: Medical Code(s): C34.90 - Malignant neoplasm of unspecified part of unspecified bronchus or lung (4) Anemia Current visit: Yes Status: Acute Qualifiers: Anemia type: unspecified type Qualified Code(s): D64.9 - Anemia, unspecified Category: Medical Code(s): D64.9 - Anemia, unspecified (5) Dysphagia Current visit: Yes Status: Acute Category: Medical Code(s): R13.10 - Dysphagia, unspecified (6) Protein-calorie malnutrition, moderate Current visit: Yes Status: Acute Category: Medical Code(s): E44.0 - Moderate protein-calorie malnutrition (7) Bacteremia due to Gram-positive bacteria Current visit: Yes Status: Acute Category: Medical Code(s): R78.81 - Bacteremia
[2018-02-05 20:46] LABS: Basophils % 0.3 % (0.1-2.0); Eosinophils # 0.1 K/mm3 (0.0-0.4); Eosinophils % 0.8 % (0.1-12.0); Hematocrit 28.9 % (42.0-52.0); Hemoglobin 9.6 g/dL (14.1-18.0); Lymphocytes # 1.4 K/mm3 (0.7-4.5); Lymphocytes % 15.7 K/mm3 (10-50); Mean Corpuscular Hemoglobin 29.6 pg (27.0-31.2); Mean Corpuscular Volume 89.5 fl (80-94); Mean Platelet Volume 8.3 fl (7.4-10.4); Monocytes # 0.6 K/mm3 (0.1-1.0); Monocytes % 6.9 % (1.7-9.3); Neutrophils # 6.7 K/mm3 (1.8-7.8); Neutrophils % 76.4 % (37.0-80.0); Platelet Count 409 K/mm3 (142-424); Red Blood Count 3.24 M/mm3 (4.60-6.20); Red Cell Distribution Width 13.3 % (11.5-17.5); White Blood Count 8.8 K/mm3 (4.8-10.8)
[2018-02-05 20:59] LABS: Anion Gap 9.4 mEq/L (5-15); Potassium 4.4 mmoL/L (3.5-5.1)
--- NOTE | 2018-02-06 12:12 | Progress Note ---
Internal Medicine - PN: Subj *Date: 02/06/18 *Time: 12:10 Interval history: doing ok today with no fever and discussed with about transfer Exam Vital signs and Labs for Last 24 Hours: Temp Pulse Resp BP Pulse Ox 98.5 F 77 20 135/59 93 L 02/06/18 07:18 02/06/18 07:18 02/06/18 07:18 02/06/18 07:18 02/06/18 08:00 Laboratory Results - last 24 hr 02/04/18 15:10: Urine Color Yellow, Urine Appearance Clear, Urine pH 6.0, Ur Specific [place] 1.025, Urine Protein Negative, Urine Glucose (UA) 1+, Urine Ketones Negative, Urine Blood Negative, Urine Nitrate Negative, Urine Bilirubin Negative, Urine Urobilinogen 4.0, Ur Leukocyte Esterase Negative, Urine RBC Occasional, Urine WBC None, Ur Squamous Epith Cells None, Urine Bacteria Trace 02/05/18 16:55: POC Glucose 325 H* 02/05/18 20:14: POC Glucose 278 H 02/05/18 20:20: WBC 8.8 D, RBC 3.24 L, Hgb 9.6 L, Hct 28.9 L, MCV 89.5, MCH 29.6, MCHC 33.0, RDW 13.3, Plt Count 409, MPV 8.3, Neut % (Auto) 76.4, Lymph % ( Auto) 15.7, [place] % (Auto) 6.9, Eos % (Auto) 0.8, Baso % (Auto) 0.3, Neut # (Auto ) 6.7, Lymph # (Auto) 1.4, [place] # (Auto) 0.6, Eos # (Auto) 0.1, Baso # (Auto) 0.0 02/05/18 20:20: Sodium 135 L, Potassium 4.4, Chloride 102, Carbon Dioxide 28, Anion Gap 9.4, BUN 17, Creatinine 0.68 L, Estimated Creat Clear 63, Estimated GFR 116, Est GFR ( Amer) 140, Glucose 247 H 02/06/18 04:38: POC Glucose 218 H 02/06/18 11:48: POC Glucose 280 H I & O for Last 24 hours: Intake & Output 02/04/18 02/05/18 02/06/18 02/07/18 11:59 11:59 11:59 11:59 Intake Total 1566 / 1566 4509 / 4509 3493 / 3493 Output Total 400 / 400 1200 / 1200 200 / 200 Balance 1166 / 1166 3309 / 3309 3293 / 3293 Weight 137 lb 2 oz 140 lb 3 oz 151 lb 14.376 oz Microbiology Reports for the Last 24 Hours: Microbiology 02/03/18 00:10 Sputum - Expectorated Sputum Gram Stain - Final 02/03/18 00:10 Sputum - Expectorated Sputum Sputum Culture - Final Klebsiella oxytoca Haemophilus influenzae 02/03/18 21:45 Blood Blood Culture - Preliminary Staphylococcus species 02/03/18 21:45 Blood Blood Culture - Final Staphylococcus epidermidis - Constitutional no acute distress - *Routine HEENT Exam Head: Present: normocephalic Eye: Present: EOMI, PERRL ENT: Present: mucous membranes dry - *Routine Neck Exam Present: supple - *Routine Respiratory Exam Present: decreased breath sounds - *Routine Cardiovascular Exam Present: RRR, murmur - *Routine Abdominal Exam Present: soft - *Routine Extremities Exam Present: edema - *Routine Skin Exam Present: intact - *Routine Neurological Exam Present: alert, CN II-XII intact - Routine Psychiatric Exam Present: unable to assess Assessment and Plan (1) IDDM (insulin dependent diabetes mellitus) Current visit: Yes Status: Acute Category: Medical Code(s): E11.9 - Type 2 diabetes mellitus without complications; Z79.4 - keno terminal operator (current) use of insulin (2) Community acquired pneumonia Current visit: Yes Status: Acute Qualifiers: Laterality: right Lung location: upper lobe of lung Qualified Code(s): J18.1 - Lobar pneumonia, unspecified organism Category: Medical Code(s): J18.9 - Pneumonia, unspecified organism (3) Lung cancer Current visit: Yes Status: Acute Qualifiers: Laterality: right Lung location: upper lobe of lung Qualified Code(s): C34.11 - Malignant neoplasm of upper lobe, right bronchus or lung Category: Medical Code(s): C34.90 - Malignant neoplasm of unspecified part of unspecified bronchus or lung (4) Anemia Current visit: Yes Status: Acute Qualifiers: Anemia type: unspecified type Qualified Code(s): D64.9 - Anemia, unspecified Category: Medical Code(s): D64.9 - Anemia, unspecified (5) Dysphagia Current visit: Yes Status: Acute Category: Medical Code(s): R13.10 - Dysphagia, unspecified (6) Protein-calorie malnutrition, moderate Current visit: Yes Status: Acute Category: Medical Code(s): E44.0 - Moderate protein-calorie malnutrition (7) Bacteremia due to Gram-positive bacteria Current visit: Yes Status: Acute Category: Medical Code(s): R78.81 - Bacteremia
[2018-02-06 15:53] VITALS: BP 128/54
--- NOTE | 2018-02-06 20:35 | Discharge Summary ---
General - General Admission date:: 02/04/18 Discharge date: 02/06/18 HPI HPI: this wm from [facility] nad fever with cough- pt has long hx of tob use and has abn ct - with prob lung cancer- he has dec ambulation and dec po intake and was seen in the ed and admitted with prob (67-year-old man to the hospital on 02/03/2018 because of failure to thrive cough 100 pound weight loss. She lives in an assisted living center and the weight loss and loss of appetite started about a year ago. The cough started about 3 months ago. Cough is brassy nonproductive. It has over 100 [address]. CT scan on admission showed a right hilar mass with numerous mediastinal nodes.) Hospital Course Hospital Course: pt with slow improvement on abx with dec fever but still with dec po intake - he had pos blood culture and pos sputum and on abx - ct chest showed prob cancer with unable to get percutaneous bx and no mets on ct head and abd/pelvis - had oncology consult and discussed with for transfer for oncology and possible bronch and continuation of care for pneeumonia and bacteremia Objective Vital signs: Temp Pulse Resp BP Pulse Ox 98.0 F 68 16 128/54 96 02/06/18 17:26 02/06/18 17:26 02/06/18 17:26 02/06/18 17:26 02/06/18 19:56 no acute distress - *Routine HEENT Exam Head: Present: normocephalic Eye: Present: EOMI, PERRL. Absent: conjunctival icterus ENT: Present: mucous membranes dry - *Routine Neck Exam Absent: JVD - *Routine Respiratory Exam Present: decreased breath sounds. Absent: respiratory distress - *Routine Cardiovascular Exam Present: RRR, murmur - *Routine Abdominal Exam Present: soft - *Routine Extremities Exam Absent: calf tenderness - *Routine Skin Exam Present: intact - *Routine Neurological Exam Present: alert, CN II-XII intact - Routine Psychiatric Exam Present: unable to assess Results Labs on day of discharge: Labs from last 24 hours 02/06/18 02/06/18 02/06/18 16:33 11:48 04:38 WBC RBC Hgb Hct MCV MCH MCHC RDW Plt Count MPV Neut % (Auto) Lymph % (Auto) [place] % (Auto) Eos % (Auto) Baso % (Auto) Neut # (Auto) Lymph # (Auto) [place] # (Auto) Eos # (Auto) Baso # (Auto) Sodium Potassium Chloride Carbon Dioxide Anion Gap BUN Creatinine Estimated Creat Clear Estimated GFR Est GFR ( Amer) Glucose POC Glucose 298 H 280 H 218 H Urine Color Urine Appearance Urine pH Ur Specific [place] Urine Protein Urine Glucose (UA) Urine Ketones Urine Blood Urine Nitrate Urine Bilirubin Urine Urobilinogen Ur Leukocyte Esterase Urine RBC Urine WBC Ur Squamous Epith Cells Urine Bacteria 02/05/18 02/05/18 02/05/18 20:20 20:20 20:14 WBC 8.8 D RBC 3.24 L Hgb 9.6 L Hct 28.9 L MCV 89.5 MCH 29.6 MCHC 33.0 RDW 13.3 Plt Count 409 MPV 8.3 Neut % (Auto) 76.4 Lymph % (Auto) 15.7 [place] % (Auto) 6.9 Eos % (Auto) 0.8 Baso % (Auto) 0.3 Neut # (Auto) 6.7 Lymph # (Auto) 1.4 [place] # (Auto) 0.6 Eos # (Auto) 0.1 Baso # (Auto) 0.0 Sodium 135 L Potassium 4.4 Chloride 102 Carbon Dioxide 28 Anion Gap 9.4 BUN 17 Creatinine 0.68 L Estimated Creat Clear 63 Estimated GFR 116 Est GFR ( Amer) 140 Glucose 247 H POC Glucose 278 H Urine Color Urine Appearance Urine pH Ur Specific [place] Urine Protein Urine Glucose (UA) Urine Ketones Urine Blood Urine Nitrate Urine Bilirubin Urine Urobilinogen Ur Leukocyte Esterase Urine RBC Urine WBC Ur Squamous Epith Cells Urine Bacteria 02/05/18 02/04/18 16:55 15:10 WBC RBC Hgb Hct MCV MCH MCHC RDW Plt Count MPV Neut % (Auto) Lymph % (Auto) [place] % (Auto) Eos % (Auto) Baso % (Auto) Neut # (Auto) Lymph # (Auto) [place] # (Auto) Eos # (Auto) Baso # (Auto) Sodium Potassium Chloride Carbon Dioxide Anion Gap BUN Creatinine Estimated Creat Clear Estimated GFR Est GFR ( Amer) Glucose POC Glucose 325 H* Urine Color Yellow Urine Appearance Clear Urine pH 6.0 Ur Specific [place] 1.025 Urine Protein Negative Urine Glucose (UA) 1+ Urine Ketones Negative Urine Blood Negative Urine Nitrate Negative Urine Bilirubin Negative Urine Urobilinogen 4.0 Ur Leukocyte Esterase Negative Urine RBC Occasional Urine WBC None Ur Squamous Epith Cells None Urine Bacteria Trace Preliminary micro results at discharge 02/03/18 21:45 Blood Culture - Preliminary Blood Staphylococcus species DS: Diagnosis - Discharge Diagnosis (1) IDDM (insulin dependent diabetes mellitus) Status: Acute (2) Community acquired pneumonia Status: Acute (3) Lung cancer Status: Acute (4) Anemia Status: Acute (5) Dysphagia Status: Acute (6) Protein-calorie malnutrition, moderate Status: Acute (7) Bacteremia due to Gram-positive bacteria Status: Acute Discharge Plan - Patient Discharge Instructions ACTIVITY: Continue current activity DIET: continue same diet Patient Instructions: Pneumonia-Adult, Lung Cancer - Follow up Plan Disposition: Xfer Short-Term Hosp Prescriptions/Medication Reconciliation: Discontinued Divalproex Sodium [Depakote Sprinkle 125mg capsule] 250 mg PO BID Docusate Sodium [Colace 250mg capsule] 250 mg PO DAILY hydroCHLOROthiazide [HCTZ 25mg tab] 25 mg PO DAILY Insulin Lispro [Humalog Kwikpen U-100] 10 unit SQ BID OLANZapine [Zyprexa] 7.5 mg PO HS Omeprazole [Omeprazole 20mg Tab] 20 mg PO DAILY Tamsulosin HCl [Flomax 0.4mg capsule] 0.4 mg PO DAILY Carbidopa/Levodopa [Carbidopa-Levo 25-100 mg Odt] 1 tab PO BID Potassium Chloride [Klor-con 20 mEq tablet] 20 meq PO DAILY
--- NOTE | 2018-02-23 13:53 | Consult Report ---
*Admission Date: 02/04/18 *History of present illness: this wm from [facility] [place] fever with cough- pt has long hx of tob use and has abn ct - with prob lung cancer- he has dec ambulation and dec po intake and was seen in the ed and admitted with prob cap / (67-year-old man to the hospital on 02/03/2018 because of failure to thrive cough 100 pound weight loss. She lives in an assisted living center and the weight loss and loss of appetite started about a year ago. The cough started about 3 months ago. Cough is brassy nonproductive. It has over 100 [address] scan on admission showed a right hilar mass with numerous mediastinal nodes.) [facility] History Medical History: Reports:: Diabetes Mellitus Type 2 Denies:: Diabetes Mellitus Type 1, Internal Pacemaker Other Surgeries: No: Pacemaker - *Social History Educational Level: Attended Grade School Smoking Status: Current every day smoker Tobacco Type: cigarettes # Packs/Day (cigarettes): 1 #Yrs smoked (if former smoker): 49 Alcohol Intake: never Occupational Status: disabled Housing: assisted living facility Household Members: other - Psychiatric History Expresses thoughts of harming self/others: None Suicide Plan Description: No Plan *Family Hx:: Unable to obtain Review of Systems - *Neurologic Reports confusion, Reports weakness, Denies headache(s) Meds Allergies Allergy/AdvReac Type Severity Reaction Status Date / Time No Known Allergies Allergy Verified 02/18/18 09:01 Exam Vital signs and Labs for Last 24 Hours: Temp Pulse Resp BP Pulse Ox 98.0 F 68 16 128/54 96 02/06/18 17:26 02/06/18 17:26 02/06/18 17:26 02/06/18 17:26 02/06/18 20:00 Internal Medicine - CN: Reslt - Labs CBC & Chem 7: 02/05/18 20:20 02/05/18 20:20 Assessment and Plan (1) IDDM (insulin dependent diabetes mellitus) Status: Acute Category: Medical Code(s): E11.9 - Type 2 diabetes mellitus without complications; 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 (2) Community acquired pneumonia Status: Acute Qualifiers: Laterality: right Lung location: upper lobe of lung Qualified Code(s): J18.1 - Lobar pneumonia, unspecified organism Category: Medical Code(s): J18.9 - Pneumonia, unspecified organism (3) Lung cancer Status: Acute Qualifiers: Laterality: right Lung location: upper lobe of lung Qualified Code(s): C34.11 - Malignant neoplasm of upper lobe, right bronchus or lung Category: Medical Code(s): C34.90 - Malignant neoplasm of unspecified part of unspecified bronchus or lung (4) Anemia Status: Acute Qualifiers: Anemia type: unspecified type Qualified Code(s): D64.9 - Anemia, unspecified Category: Medical Code(s): D64.9 - Anemia, unspecified (5) Dysphagia Status: Acute Category: Medical Code(s): R13.10 - Dysphagia, unspecified (6) Protein-calorie malnutrition, moderate Status: Acute Category: Medical Code(s): E44.0 - Moderate protein-calorie malnutrition (7) Bacteremia due to Gram-positive bacteria Status: Acute Category: Medical Code(s): R78.81 - Bacteremia - Assessment and plan all Dx Assessment and Plan for all problems:: Plan is that he would come back to clinic with a new CAT scan of his abdomen and pelvis we could complete the staging and develop appropriate treatment program for him.
== END 2018-02-06 20:30 | disposition short-term general hospital (02) ==
LOC: 2ND 21:28 → ER 21:28 → 2ND 02-04 00:12
PROVIDERS: ADMIT Emergency Medicine; ATTEND Emergency Medicine
CPT/HCPCS: 36415; 70470; 71010; 71045; 71260; 74177; 80048; 80053; 80164; 81001; 82962; 83605; 83735; 85007; 85025; 87040; 87070; 87077; 87184; 87186; 87205; 92610; 94640; 94761; 96365; 96367; 99284; J2543; J3370; Q9967